=== PATIENT | female | born 1940 | race Caucasian/White ===

== ENCOUNTER 2017-01-23 16:23 | Inpatient (IN) | payer MEDICARE, OTHER ==
--- NOTE | 2017-01-23 16:24 | HP ---
SUPERVISING PHYSIC: Oswald Field MD CHIEF COMPLAINT: "I can't breathe." HISTORY OF PRESENT ILLNESS: This is a 76 year-old female patient who was seen in her primary care physician office today. She had been battling problems with chronic obstructive pulmonary disease over the last several months. She has been in multiple times with antibiotic and steroid therapy, the latest being about 2 weeks ago when she went to [facility] and received some antibiotics as well as steroids. In the office at Dr. Field's today, she was severely tachypneic and her oxygen saturations were in the low 70s. After placing her on 02, her oxygen saturation came up to the low 90s but she has continued to be tachypneic. Dr. Field called me for admission. PAST MEDICAL HISTORY: 1. Chronic obstructive pulmonary disease. 2. Anemia. 3. Chronic renal insufficiency. 4. Hypertension. 5. Gastroesophageal reflux disease. 6. Low back pain. 7. Hyperlipidemia. PAST SURGICAL HISTORY: 1. Appendectomy. 2. Hysterectomy. CURRENT MEDICATIONS: As per the EMR and awaiting verification. ALLERGIES: NO KNOWN DRUG ALLERGIES. FAMILY HISTORY: Noncontributory. SOCIAL HISTORY: She is retired. She is . She has a past history of smoking, she quit smoking in 1999. She denies any ETOH or illicit drug use. REVIEW OF SYSTEMS: GENERAL: Complains of fatigue, denies weight changes or fever or chills. HEENT: Denies sinus symptoms, ear pain, vision changes or sore throat. RESPIRATORY: As per the history of present illness. CARDIAC: Denies chest pain, palpitations or tachycardia. ABDOMEN: Denies nausea, vomiting, diarrhea, constipation or abdominal pain. GENITOURINARY: Denies hematuria or dysuria. NEUROLOGICAL: She complains of weakness but denies seizures or headache. PHYSICAL EXAMINATION: VITAL SIGNS: She is afebrile. Heart rate 75, blood pressure 155/81, respiratory rate 24. Oxygen saturation 90% on 2 liters nasal cannula. GENERAL: This is a 76 year-old female patient who is in moderate respiratory distress HEENT: Normocephalic and atraumatic. Pupils are equal and reactive. Oropharynx is clear. NECK: Supple without masses, no jugular venous distention. Trachea is midline. CHEST: Bilateral expiratory wheezing throughout with some scattered rhonchi. CARDIOVASCULAR: Regular rate and rhythm. ABDOMEN: Soft, nondisplaced, non-tender. Bowel sounds are positive. EXTREMITIES: No cyanosis, clubbing, or edema. SKIN: Warm an dry. NEUROLOGIC: Awake, alert, and oriented x3. LABORATORY: Sodium 141, potassium 4.4, chloride 101, carbon dioxide 32, BUN 25 , creatinine 1.28, glucose 110. WBC 7.8, hemoglobin 11.9, hematocrit 38.3, platelet count 252,000. PC02 is 59, PO2 of 57, pH 7.31. 02 saturation 85.5%. Urine shows a trace of lysed blood and 3 to 5 urine RBCs. All other labs and films have been reviewed via the EMR. ASSESSMENT: 1. Chronic obstructive pulmonary disease with acute exacerbation, failed outpatient therapy with multiple clinic visits with treatment of steroids and unknown antibiotics. 2. Hypercapnic hypoxic respiratory failure. 3. Elevated blood glucose. 4. Gastroesophageal reflux disease. 5. Chronic renal insufficiency. 6. Hypertension. 7. Hyperlipidemia. 8. Chronic back pain. PLAN: We will admit the patient to the hospital. I will start her on steroids and breathing treatments. We will also monitor her blood sugars and start her on Rocephin and Levaquin. Her cultures have been drawn as well as will repeat her lab and chest x-ray in the morning. I restarted her home medications. Lovenox has been started for DVT prophylaxis as well as Protonix for ulcer prophylaxis. Will encourage good pulmonary hygiene including her incentive spirometry. We will follow the patient closely and followup as needed. #[id number] [facility]
[2017-01-23] MEDS ORDERED: ALBUTEROL SULFATE 2.5 MG/3 ML VIAL NEB PRN (17:45)
[2017-01-23] MEDS ORDERED: ACETAMINOPHEN 325 MG TAB PO PRN (17:45)
--- NOTE | 2017-01-23 17:53 | PCM.CORE ---
Physician DVT/VTE - Prophylaxis Currently: Patient already on anticoagulation therapy - 5 or more Very High Risk Treatments: Early Ambulation *, Sequential Compression Device
[2017-01-23] MEDS ORDERED: methylPREDNISolone SODIUM SUC 125 MG/2 ML VIAL IV ONE (18:04)
[2017-01-23] MEDS ORDERED: IPRATROPIUM/ALBUTEROL 3 ML VIAL NEB ONE (18:05)
[2017-01-23] MEDS ORDERED: SODIUM CHLORIDE 0.9% 10 ML VIAL ONE ×2 (18:14→20:28)
[2017-01-23] MEDS: PANTOPRAZOLE SODIUM IV 40 MG VIAL IV SCH (18:30)
[2017-01-23] MEDS: ENOXAPARIN SODIUM 40 MG/0.4 ML SYG SUBCU SCH (18:30)
[2017-01-23] MEDS: IV SET AND CAP CHANGE INJ INJ SCH (18:35)
[2017-01-23] MEDS ORDERED: DEXTROSE 50% 25 GM/50 ML SYG IV PRN (19:30)
[2017-01-23] MEDS ORDERED: GLUCAGON INJ 1 MG VIAL SUBCU PRN (19:30)
[2017-01-23] MEDS ORDERED: SODIUM CHLORIDE 0.9% 250ML 250 ML ONE (20:27)
[2017-01-23] MEDS ORDERED: cefTRIAXone SODIUM 1 GM VIAL ONE (20:28)
[2017-01-23] MEDS ORDERED: SIMVASTATIN 20 MG TAB ONE (20:28)
[2017-01-23] MEDS ORDERED: SODIUM CHL 0.9% 50ML MIN-BAG+ 50 ML IVPB ONE (20:28)
[2017-01-23] MEDS ORDERED: AZITHROMYCIN IV 500 MG VIAL IVPB ONE (20:29)
[2017-01-23] MEDS ORDERED: ESZOPICLONE 1 MG TAB ONE (20:44)
[2017-01-23] MEDS: SODIUM CHLORIDE 0.9% (FLUSH) 10 ML SYG IV SCH (20:51)
[2017-01-23] MEDS: cefTRIAXone SODIUM 1 GM in SODIUM CHL 0.9% 50ML MIN-BAG+ 50 ML IVPB SCH (20:52)
[2017-01-23] MEDS ORDERED: NON-FORMULARY MEDICATION 1 EA MIS (Simvastatin [Simvastatin] 80 MG) PO SCH (21:00)
[2017-01-23] MEDS ORDERED: METOPROLOL TARTRATE 50 MG TAB PO SCH (21:00)
[2017-01-23] MEDS: INSULIN LISPRO 100 UNITS/ML PEN SUBCU SCH (21:00)
[2017-01-23] MEDS ORDERED: ESZOPICLONE 3 MG PO SCH (21:00)
[2017-01-23] MEDS: HYDROcodone 7.5MG/APAP 325MG 1 EA TAB PO PRN (21:05)
[2017-01-23] MEDS: IPRATROPIUM/ALBUTEROL 3 ML VIAL INH SCH (21:15)
[2017-01-23] MEDS: AZITHROMYCIN IV 500 MG in SODIUM CHLORIDE 0.9% 250ML 250 ML IVPB SCH (22:00)
[2017-01-23] MEDS: ASPIRIN/ACETAMINOPHEN/CAFFEINE 1 EA TAB PO PRN (23:35)
[2017-01-24] MEDS ORDERED: SODIUM CHL 0.9% 50ML MIN-BAG+ 50 ML IVPB ONE ×2 (05:04→20:03)
[2017-01-24] MEDS ORDERED: LISINOPRIL 10 MG TAB ONE (05:04)
[2017-01-24] MEDS ORDERED: HCTZ 25 MG/TRIAMTERENE 37.5 MG 1 EA CAP ONE (05:05)
[2017-01-24] MEDS ORDERED: cefTRIAXone SODIUM 1 GM VIAL ONE ×2 (05:05→20:04)
[2017-01-24] MEDS: SODIUM CHLORIDE 0.9% (FLUSH) 10 ML SYG IV PRN ×3 (06:29→20:17)
[2017-01-24] MEDS: methylPREDNISolone SODIUM SUC 125 MG/2 ML VIAL IV SCH ×2 (06:30→13:46)
--- NOTE | 2017-01-24 07:15 | RAD ---
EXAM DESCRIPTION: Chest,2 Views CLINICAL HISTORY: COPD COMPARISON: None Available. TECHNIQUE: Two-views of the chest. FINDINGS: Normal heart size. Mildly tortuous atherosclerotic aorta. Hyperinflation consistent with COPD. No edema, infiltrates or effusions. No acute bony abnormality IMPRESSION: Hyperinflation consistent with COPD. No focal infiltrate Electronically signed by: Oswald Del Valle MD 01/24/2017 7:14 AM [employer]
[2017-01-24] MEDS ORDERED: SODIUM CHLORIDE 0.9% 10 ML VIAL ONE (07:19)
[2017-01-24] MEDS ORDERED: SODIUM CHLORIDE 0.9% 10 ML VIAL IV PRN (07:29)
[2017-01-24] MEDS: INSULIN LISPRO 100 UNITS/ML PEN SUBCU SCH ×4 (07:48→21:40)
[2017-01-24] MEDS: METOPROLOL TARTRATE 50 MG TAB PO SCH ×2 (07:49→16:45)
[2017-01-24] MEDS: cefTRIAXone SODIUM 1 GM in SODIUM CHL 0.9% 50ML MIN-BAG+ 50 ML IVPB SCH ×2 (07:49→20:16)
[2017-01-24] MEDS: HYDROcodone 7.5MG/APAP 325MG 1 EA TAB PO PRN ×3 (07:54→20:21)
[2017-01-24] MEDS: ASPIRIN/ACETAMINOPHEN/CAFFEINE 1 EA TAB PO PRN ×3 (07:54→21:26)
[2017-01-24] MEDS: IPRATROPIUM/ALBUTEROL 3 ML VIAL INH SCH ×4 (08:21→20:48)
[2017-01-24] MEDS: LISINOPRIL 10 MG TAB PO SCH (08:29)
[2017-01-24] MEDS: metFORMIN HCL 500 MG TAB PO SCH (08:29)
[2017-01-24] MEDS: ESCITALOPRAM 10 MG TAB PO SCH (08:29)
[2017-01-24] MEDS: SODIUM CHLORIDE 0.9% (FLUSH) 10 ML SYG IV SCH ×2 (08:34→21:24)
[2017-01-24] MEDS: HCTZ 25 MG/TRIAMTERENE 37.5 MG 1 EA CAP PO SCH (08:54)
[2017-01-24] MEDS ORDERED: HCTZ PO SCH (09:00)
[2017-01-24] MEDS ORDERED: TRIAMTERENE PO SCH (09:00)
[2017-01-24] MEDS: PANTOPRAZOLE SODIUM IV 40 MG VIAL IV SCH (16:45)
[2017-01-24] MEDS: ENOXAPARIN SODIUM 40 MG/0.4 ML SYG SUBCU SCH (16:47)
[2017-01-24] MEDS: methylPREDNISolone SODIUM SUC 40 MG/ML VIAL IV SCH ×2 (16:50→23:08)
--- NOTE | 2017-01-24 17:20 | PN ---
DATE: 01/24/17 SUPERVISING PHYSICIAN: Oswald Field M.D. SUBJECTIVE: The patient is sitting up in her chair in her room. She continues complaints of shortness of breath but is much improved since yesterday. She also says she gets very weak, but again that is much improved since yesterday. She denies any chest pain, nausea, vomiting, diarrhea or constipation. OBJECTIVE: She is afebrile, heart rate 76, blood pressure 149/77, respiratory rate 18, O2 sat 92% on 2 liters nasal cannula. RESPIRATORY: Bilateral rhonchi which some diffuse expiratory wheezing, much improved since yesterday. CARDIAC : Regular rate and rhythm. ABDOMEN: Soft, nondistended, non-tender. Bowel sounds are positive. EXTREMITIES: No cyanosis, clubbing or edema. NEUROLOGIC: She is awake, alert and oriented times three. LABORATORY: WBC 4.4, hemoglobin 11, hematocrit 35.4, platelets 229, neutrophils 81.9. Sodium 139, potassium 4.6, chloride 102, BUN 25, creatinine 1.16, glucose 163. Chest x-ray shows hyperinflation of chronic obstructive pulmonary disease with no focal infiltrate. All other labs and films have been reviewed via the EMR. ASSESSMENT: 1. Acute exacerbation of chronic obstructive pulmonary disease with failed outpatient treatment with multiple clinic visits and treatment with steroids and unknown antibiotics. 2. Hypercapnic hypoxic respiratory failure that has improved. 3. Elevated blood glucose. 4. Gastroesophageal reflux disease. 5. Chronic renal insufficiency. 6. Hypertension. 7. Hyperlipidemia. 8. Chronic back pain. PLAN: We will continue to monitor the patient closely. Will continue to encourage good pulmonary hygiene. I have ordered an ambulation study tomorrow as well as early ambulation at least 3 times a day. I have decreased her steroids and will continue her present antibiotic treatment. I will recheck her lab and chest x-ray in the morning. We will continue to follow the patient closely and followup as needed. Hopefully she can be discharged tomorrow or the next day. Dr. Field is the supervising physician and available for consultation. #[id number] [facility]
[2017-01-24] MEDS ORDERED: SODIUM CHLORIDE 0.9% 250ML 250 ML ONE (20:03)
[2017-01-24] MEDS ORDERED: AZITHROMYCIN IV 500 MG VIAL IVPB ONE (20:05)
[2017-01-24] MEDS: AZITHROMYCIN IV 500 MG in SODIUM CHLORIDE 0.9% 250ML 250 ML IVPB SCH (21:22)
[2017-01-24] MEDS: SIMVASTATIN 20 MG TAB PO SCH (21:23)
[2017-01-24] MEDS: ESZOPICLONE 1 MG TAB PO SCH (21:24)
[2017-01-25] MEDS: SODIUM CHLORIDE 0.9% (FLUSH) 10 ML SYG IV PRN ×2 (05:17→11:04)
[2017-01-25] MEDS: methylPREDNISolone SODIUM SUC 40 MG/ML VIAL IV SCH ×2 (05:17→11:02)
--- NOTE | 2017-01-25 06:41 | RAD ---
Clinical History : copd , MAIN Exam : PA and lateral views of the chest 01/25/2017 5:00 AM [employer] Comparisons : PA and lateral views of the chest January 24, 2017 Findings : Stable emphysematous changes are noted throughout the lungs bilaterally. There is flattening of the diaphragms and increased retrosternal clear space. The lungs are clear without focal consolidation or pleural effusion. The heart is normal in size. The mediastinal contours are normal in appearance. There are vascular calcifications along the aortic arch. The thoracic spine is age appropriate. The shoulders are unremarkable. Limited evaluation of the upper abdomen demonstrates no gross abnormalities. Impression: 1. No acute cardiopulmonary disease (stable appearing chest). 2. Stable emphysema. Electronically signed by: Arlen Tyler MD 01/25/2017 6:40 AM [employer]
[2017-01-25] MEDS ORDERED: SODIUM CHL 0.9% 50ML MIN-BAG+ 50 ML IVPB ONE ×2 (07:55→20:11)
[2017-01-25] MEDS ORDERED: cefTRIAXone SODIUM 1 GM VIAL ONE ×2 (07:55→20:12)
[2017-01-25] MEDS: INSULIN LISPRO 100 UNITS/ML PEN SUBCU SCH ×4 (08:00→22:13)
[2017-01-25] MEDS: ASPIRIN/ACETAMINOPHEN/CAFFEINE 1 EA TAB PO PRN ×2 (08:01→15:07)
[2017-01-25] MEDS: METOPROLOL TARTRATE 50 MG TAB PO SCH ×2 (08:01→17:07)
[2017-01-25] MEDS: metFORMIN HCL 500 MG TAB PO SCH (08:01)
[2017-01-25] MEDS: HYDROcodone 7.5MG/APAP 325MG 1 EA TAB PO PRN ×2 (08:03→17:12)
[2017-01-25] MEDS: IPRATROPIUM/ALBUTEROL 3 ML VIAL INH SCH (08:20)
[2017-01-25] MEDS: cefTRIAXone SODIUM 1 GM in SODIUM CHL 0.9% 50ML MIN-BAG+ 50 ML IVPB SCH ×2 (08:43→20:30)
[2017-01-25] MEDS: LISINOPRIL 10 MG TAB PO SCH (08:45)
[2017-01-25] MEDS: SODIUM CHLORIDE 0.9% (FLUSH) 10 ML SYG IV SCH ×2 (08:45→21:15)
[2017-01-25] MEDS: ESCITALOPRAM 10 MG TAB PO SCH (08:45)
[2017-01-25] MEDS: HCTZ 25 MG/TRIAMTERENE 37.5 MG 1 EA CAP PO SCH (08:45)
[2017-01-25] MEDS ORDERED: LEVALBUTEROL NEBS 1.25 MG/3 ML VIAL NEB PRN (10:59)
[2017-01-25] MEDS: LEVALBUTEROL NEBS 1.25 MG/3 ML VIAL NEB SCH ×3 (13:05→21:22)
[2017-01-25] MEDS ORDERED: BISACODYL TAB 5 MG TAB PO ONE (14:11)
[2017-01-25] MEDS: ALPRAZolam 0.25 MG TAB PO PRN ×2 (15:07→21:14)
[2017-01-25] MEDS: PANTOPRAZOLE SODIUM TAB 40 MG PO SCH (17:07)
[2017-01-25] MEDS: ENOXAPARIN SODIUM 40 MG/0.4 ML SYG SUBCU SCH (18:30)
[2017-01-25] MEDS: SENNOSIDES 8.6 MG TAB PO SCH (21:14)
[2017-01-25] MEDS: AZITHROMYCIN 250 MG TAB PO SCH (21:14)
[2017-01-25] MEDS: SIMVASTATIN 20 MG TAB PO SCH (21:14)
[2017-01-25] MEDS: ESZOPICLONE 1 MG TAB PO SCH (21:14)
[2017-01-26] MEDS ORDERED: SODIUM CHL 0.9% 50ML MIN-BAG+ 0 ML IVPB ONE (06:08)
[2017-01-26] MEDS ORDERED: cefTRIAXone SODIUM 1 GM VIAL ONE ×3 (06:09→19:54)
[2017-01-26] MEDS ORDERED: predniSONE 20 MG TAB ONE (06:11)
[2017-01-26] MEDS: PANTOPRAZOLE SODIUM TAB 40 MG PO SCH (06:26)
[2017-01-26] MEDS: LEVALBUTEROL NEBS 1.25 MG/3 ML VIAL NEB SCH ×4 (07:20→20:36)
[2017-01-26] MEDS: INSULIN LISPRO 100 UNITS/ML PEN SUBCU SCH ×4 (07:41→21:18)
[2017-01-26] MEDS ORDERED: SODIUM CHL 0.9% 50ML MIN-BAG+ 50 ML IVPB ONE ×2 (08:05→19:53)
[2017-01-26] MEDS: metFORMIN HCL 500 MG TAB PO SCH (08:08)
[2017-01-26] MEDS: METOPROLOL TARTRATE 50 MG TAB PO SCH ×2 (08:08→17:07)
[2017-01-26] MEDS: cefTRIAXone SODIUM 1 GM in SODIUM CHL 0.9% 50ML MIN-BAG+ 50 ML IVPB SCH ×2 (08:08→20:19)
[2017-01-26] MEDS ORDERED: HCTZ PO SCH (09:00)
[2017-01-26] MEDS ORDERED: TRIAMTERENE PO SCH (09:00)
[2017-01-26] MEDS: HCTZ 25 MG/TRIAMTERENE 37.5 MG 1 EA CAP PO SCH (09:34)
[2017-01-26] MEDS: ESCITALOPRAM 10 MG TAB PO SCH (09:34)
[2017-01-26] MEDS: HYDROcodone 7.5MG/APAP 325MG 1 EA TAB PO PRN ×2 (09:35→16:52)
[2017-01-26] MEDS: LISINOPRIL 10 MG TAB PO SCH (09:35)
[2017-01-26] MEDS: predniSONE 20 MG TAB PO SCH (09:35)
[2017-01-26] MEDS: SODIUM CHLORIDE 0.9% (FLUSH) 10 ML SYG IV SCH ×2 (09:46→21:15)
--- NOTE | 2017-01-26 11:33 | PN ---
DATE: 01/25/17 SUPERVISING PHYSICIAN: Ernesto Stanley M.D. SUBJECTIVE: The patient is sitting up in her bed in her room. She complains of being very shaky and nervous, but she feels much better as far as her breathing is concerned than she has in several days. She continues to be somewhat weak but other than that she feels like she is improving. She does complain that she cannot sleep at night even with her Lunesta and she realizes some of that may be the medications, but she is very tired. OBJECTIVE: VITAL SIGNS: She is afebrile, heart rate 78, blood pressure 144/78, respiratory rate 18, O2 sat is 92% on 2 liters nasal cannula. Her ambulation study on room air shows an O2 sat of 88%. RESPIRATORY: Essentially clear to auscultation bilaterally. There are a few scattered expiratory wheezes but very mild. She does get tachypneic at times. CARDIAC: Regular rate and rhythm. ABDOMEN: Soft, nondistended, non-tender. Bowel sounds are positive. EXTREMITIES: No cyanosis, clubbing or edema. NEUROLOGIC: She is awake, alert and oriented times three. LABORATORY: WBCs are 11, hemoglobin 10.7, hematocrit 35, neutrophils 90. Sodium 139, potassium 4.4, chloride 100, carbon dioxide 29, BUN 29, creatinine 0.94. Chest x-ray shows no acute cardiopulmonary disease and stable emphysema. All other labs and films have been reviewed via the EMR. ASSESSMENT: 1. Acute exacerbation of chronic obstructive pulmonary disease with failed outpatient treatment with multiple clinic visits and treatment with steroids and unknown antibiotics. 2. Hypercapnic hypoxic respiratory failure that has improved. 3. Elevated blood glucose. 4. Gastroesophageal reflux disease. 5. Chronic renal insufficiency. 6. Hypertension. 7. Hyperlipidemia. 8. Chronic back pain. PLAN: We will continue to monitor the patient closely. I have changed her breathing treatments to Xopenex. Hopefully that will help with some of the shakiness. I have also discontinued her IV steroids and changed them to a prednisone taper. Will continue with her Zithromax and her Rocephin. I have also initiated home oxygen with our [employer], Kylah Mann, so the patient can have oxygen when she is discharged. I have ordered an ABG, CBC and BMP in the morning. I have also given her a small dose of Xanax to help with her sleeping. Continue to encourage her to ambulate in the halls as well as to continue good pulmonary hygiene. We will continue to monitor the patient closely and follow as needed. Dr. Stanley is the collaborating physician available for consultation. #[id number] [facility]
[2017-01-26] MEDS: ASPIRIN/ACETAMINOPHEN/CAFFEINE 1 EA TAB PO PRN (15:08)
--- NOTE | 2017-01-26 15:25 | PN ---
DATE: 01/26/17 SUPERVISING PHYSICIAN: Ernesto Stanley M.D. SUBJECTIVE: The patient is sitting on the side of her hospital bed. She continues to feel better each day. She still complains of shortness of breath with exertion but otherwise denies chest pain, abdominal pain, nausea or vomiting, dizziness or headache. OBJECTIVE: She is average, heart rate 73, blood pressure 128/73, respiratory rate 18, O2 sat 92% on 2 liters nasal cannula. RESPIRATORY: Distant breath sounds but basically clear to auscultation. CARDIAC: Regular rate and rhythm. ABDOMEN: Soft, nondistended, non-tender. Bowel sounds are positive. NEUROLOGIC : She is awake, alert and oriented times three. LABORATORY: White count has improved to 10.9 as well as neutrophils are down to 78.9. Chemistry is basically within normal limits. Preliminary blood cultures are negative. All other labs and films have been reviewed via the EMR. ASSESSMENT: 1. Acute exacerbation of chronic obstructive pulmonary disease with failed outpatient treatment with multiple clinic visits and treatments with steroids and unknown antibiotics. 2. Hypercapnic hypoxic respiratory failure that has improved. 3. Gastroesophageal reflux disease. 4. Chronic renal insufficiency. 5. Hypertension. 6. Hyperlipidemia. 7. Chronic back pain. PLAN: She should be able to go home tomorrow. She is much improved, although she does get quite dyspneic with exertion. She does have home oxygen ordered, the order has been initiated and the medical company is out of [employer]. We are awaiting an ABG although clinically she has improved greatly, but I will repeat one before discharge. I am not going to do any x-ray in the morning because her last one showed stable emphysematous lungs. I will have an ambulatory study for in the morning. She should be able to be discharged at that time. We will continue to monitor the patient closely and follow as needed. Dr. Stanley is the collaborating physician and available for consultation. #[id number] [facility]
[2017-01-26] MEDS: IV SET AND CAP CHANGE INJ INJ SCH (19:11)
[2017-01-26] MEDS: ENOXAPARIN SODIUM 40 MG/0.4 ML SYG SUBCU SCH (19:12)
[2017-01-26] MEDS: SODIUM CHLORIDE 0.9% (FLUSH) 10 ML SYG IV PRN (20:18)
[2017-01-26] MEDS: ALPRAZolam 0.25 MG TAB PO PRN (21:13)
[2017-01-26] MEDS: AZITHROMYCIN 250 MG TAB PO SCH (21:14)
[2017-01-26] MEDS: SIMVASTATIN 20 MG TAB PO SCH (21:14)
[2017-01-26] MEDS: ESZOPICLONE 1 MG TAB PO SCH (21:14)
[2017-01-26] MEDS: SENNOSIDES 8.6 MG TAB PO SCH (21:14)
[2017-01-27] MEDS: PANTOPRAZOLE SODIUM TAB 40 MG PO SCH (06:15)
[2017-01-27] MEDS ORDERED: SODIUM CHL 0.9% 50ML MIN-BAG+ 50 ML IVPB ONE (07:59)
[2017-01-27] MEDS ORDERED: cefTRIAXone SODIUM 1 GM VIAL ONE (08:01)
[2017-01-27] MEDS: LEVALBUTEROL NEBS 1.25 MG/3 ML VIAL NEB SCH ×2 (08:22→12:42)
[2017-01-27] MEDS: INSULIN LISPRO 100 UNITS/ML PEN SUBCU SCH ×2 (08:36→12:35)
[2017-01-27] MEDS: HCTZ 25 MG/TRIAMTERENE 37.5 MG 1 EA CAP PO SCH (08:38)
[2017-01-27] MEDS: cefTRIAXone SODIUM 1 GM in SODIUM CHL 0.9% 50ML MIN-BAG+ 50 ML IVPB SCH (08:38)
[2017-01-27] MEDS: LISINOPRIL 10 MG TAB PO SCH (08:38)
[2017-01-27] MEDS: predniSONE 20 MG TAB PO SCH (08:39)
[2017-01-27] MEDS: ESCITALOPRAM 10 MG TAB PO SCH (08:39)
[2017-01-27] MEDS: metFORMIN HCL 500 MG TAB PO SCH (08:39)
[2017-01-27] MEDS: METOPROLOL TARTRATE 50 MG TAB PO SCH (08:39)
[2017-01-27] MEDS: SODIUM CHLORIDE 0.9% (FLUSH) 10 ML SYG IV SCH (08:39)
[2017-01-27] MEDS: HYDROcodone 7.5MG/APAP 325MG 1 EA TAB PO PRN (08:48)
[2017-01-27 14:45] VITALS: BP 179/79; TEMP 98.1; O2SAT 94
--- NOTE | 2017-01-27 17:23 | DS ---
DISCHARGE DIAGNOSIS: 1. Advanced chronic obstructive pulmonary disease with an acute exacerbation having failed outpatient therapy with multiple clinic visits and treatments with corticosteroids and antibiotics. 2. Moderate respiratory failure with hypoxic CO2 retention noted. 3. Gastroesophageal reflux disease. 4. Chronic renal insufficiency. 5. History of hypertension. 6. History of hyperlipidemia. 7. Chronic back pain. 8. History of chronic tobacco abuse now encouraged to stop completely. HISTORY OF PRESENT ILLNESS: This 76 year-old white female was admitted to the hospital from Dr. Field's office because of inability "to breathe." She felt she was "dying." She had been getting worse over the last several months, but especially got bad for 2 weeks prior to her arrival. She was last seen in the Emergency Room in [place] a couple of weeks before and was seen in Dr. Field's office on several occasions, and was severely tachypneic with hypoxic oxygen saturations into the low 70%. She was placed on oxygen and her saturation came up to the low 90s, but she remained still dyspneic, very anxious and short of breath. In the hospital, she was started on vigorous bronchodilation therapy as well as corticosteroid administration with antibiotic coverage and pulmonary hygiene. She was encouraged to stop smoking completely. LABORATORY: White count was 8,000 on discharge, hemoglobin 10. ABG showed a pH of 7.3, CO2 of 59, high, PO2 of 57, low, bicarb 28.7, normal. Chemistries showed fasting sugar on the day of discharge 78. Potassium on admission was 4.4 , CO2 elevated at 32, BUN 25, creatinine 1.28. Liver enzymes normal. Urinalysis showed some rare red blood cells and blood cultures were negative. Chest x-ray does how evidence of chronic obstructive pulmonary disease with no acute infiltrative processes noted at the time of discharge. HOSPITAL COURSE: The patient was feeling much improved on the day of discharge and was ready to continue with outpatient monitoring and followup. PLAN: Discharge home to have followup with Dr. Field or Yue Melo on Saturday at approximately 2:00 PM. Schedule for pulmonary function study to be performed in the hospital at 1:00 PM on that same date with results to be sent to Dr. Field with the spirometry results pre and post dilator in hand. She is to continue with Ceftin b.i.d. and tapering doses of prednisone. Use home oxygen to maintain a pulse oximetry between 90 and 92% only. Stop all smoke exposure. Continue with routine medication nebulizer bronchodilator treatments during the day. Return if not improving. #[id number] [facility]
== END 2017-01-27 15:27 | disposition home or self-care (01) | DRG 189 ==
LOC: MS 16:23
PROVIDERS: ADMIT Family Medicine; ATTEND Emergency Medicine
DX: J96.01 Acute respiratory failure with hypoxia (principal); J44.1 Chronic obstructive pulmonary disease with (acute) exacerbation; K21.9 Gastro-esophageal reflux disease without esophagitis; I12.9 Hypertensive chronic kidney disease with stage 1 through stage 4 chronic kidney disease, or unspecified chronic kidney disease; N18.9 Chronic kidney disease, unspecified; G89.29 Other chronic pain; M54.9 Dorsalgia, unspecified; F17.210 Nicotine dependence, cigarettes, uncomplicated; E78.5 Hyperlipidemia, unspecified; R73.9 Hyperglycemia, unspecified

== ENCOUNTER → 2017-01-30 | Outpatient (CLI) | payer MEDICARE, OTHER ==
[~2017-01-30] MED LIST: LEVALBUTEROL NEBS 1.25 MG/3 ML VIAL NEB ONE
== END | disposition home or self-care (01) ==
LOC: RESP 13:54
PROVIDERS: ATTEND Family Medicine
DX: J44.9 Chronic obstructive pulmonary disease, unspecified (principal)

== ENCOUNTER → 2017-02-19 | Outpatient (CLI) | payer MEDICARE, OTHER | END | disposition home or self-care (01) | LOC: GMAM 14:15 | PROVIDERS: ATTEND Family Medicine | DX: D64.9 Anemia, unspecified (principal) ==